=== PATIENT | female | born 1985 | race African-American/Black ===

== ENCOUNTER 2017-11-23 12:25 | Emergency (ER) | payer MEDICAID ==
[~2017-11-23] VITALS: Ht 165.1 cm; Wt 70.0 kg
[2017-11-23 13:25] LABS: CLARITY URINE CLEAR (CLEAR); COLOR URINE YELLOW (YELLOW); KETONES URINE NEGATIVE (NEGATIVE); LEUKOCYTE ESTERASE URINE NEGATIVE (NEGATIVE); NITRITE URINE NEGATIVE (NEGATIVE); OCCULT BLOOD URINE NEGATIVE (NEGATIVE); PROTEIN URINE 1+ (NEGATIVE); SPECIFIC GRAVITY URINE 1.021 (1.005-1.030); UROBILINOGEN URINE 0.2 E.U./dL (0.2-1.0)
[2017-11-23] MEDS ORDERED: BACITRACIN ZINC OINT UDPKT TOP ONE (13:30)
[2017-11-23 13:58] LABS: *AMPHETAMINES SCREEN URINE NEGATIVE (NEGATIVE); *BARBITURATES SCREEN URINE NEGATIVE (NEGATIVE); *BENZODIAZEPINES SCREEN URINE NEGATIVE (NEGATIVE); *COCAINE SCREEN URINE NEGATIVE (NEGATIVE); CANNABINOID URINE SCREEN NEGATIVE (NEGATIVE); METHADONE URINE SCREEN NEGATIVE (NEGATIVE); OPIATES URINE SCREEN NEGATIVE (NEGATIVE); PHENCYCLIDINE URINE SCREEN NEGATIVE (NEGATIVE)
[2017-11-23 14:10] LABS: CHLORIDE 103 mEq/L (98-107)
[2017-11-23 14:17] LABS: BASOPHILS % 1.3 % (0.0-2.0); EOSINOPHILS % 1.2 % (0.0-5.0); HEMATOCRIT. 42.4 % (36.0-48.0); HEMOGLOBIN. 14.2 g/dL (12.0-16.0); LYMPHOCYTES % 24.1 % (20.0-50.0); MEAN CORPUSCULAR HEMOGLOBIN 34.2 pg (28.0-32.0); MEAN CORPUSCULAR VOLUME 102.1 fL (81.0-99.0); MEAN PLATELET VOLUME 7.7 fl (7.4-10.4); MONOCYTES % 4.1 % (2.0-8.0); NEUTROPHILS % 69.3 % (40.0-76.0); PLATELET 314 x1000/uL (130-400); RED BLOOD CELL COUNT 4.16 mill/uL (4.2-5.4); RED CELL DISTRIBUTION WIDTH 13.6 % (11.6-14.6)
[2017-11-23 14:20] LABS: CARBON DIOXIDE 23 mEq/L (21-32)
[2017-11-23 14:28] LABS: ETHANOL BLOOD 446 mg/dL
[2017-11-23] MEDS ORDERED: LORAZEPAM 1MG TABLET PO ONE (14:45)
[2017-11-24] MEDS: LORAZEPAM 1MG TABLET PO ONE ×2 (02:37→02:38)
[2017-11-24] MEDS ORDERED: DIPHENHYDRAMINE 25MG CAPSULE PO ONE (05:30)
[2017-11-24 17:20] VITALS: BP 143/102
== END 2017-11-24 17:36 ==
LOC: ER 12:42
DX: F10.129 Alcohol abuse with intoxication, unspecified (principal); S50.812A Abrasion of left forearm, initial encounter; F41.9 Anxiety disorder, unspecified; R45.851 Suicidal ideations; F17.210 Nicotine dependence, cigarettes, uncomplicated; Y90.8 Blood alcohol level of 240 mg/100 ml or more; Z91.5 Personal history of self-harm; Y08.89XA Assault by other specified means, initial encounter; Y93.89 Activity, other specified; Y92.018 Other place in single-family (private) house as the place of occurrence of the external cause
CPT/HCPCS: 36415; 80048; 80305; 80307; 80329; 81001; 81025; 85025; 99285; G0482; Q0163

== ENCOUNTER 2018-11-07 14:01 | Inpatient (IN) | payer MEDICAID ==
[~2018-11-07] VITALS: Ht 165.1 cm; Wt 54.0 kg
[2018-11-07] MEDS ORDERED: SODIUM CHLORIDE 0.9% 1000ML BAG (SEPSIS BOLUS) IV ONE (21:00)
[2018-11-07] MEDS ORDERED: FOLIC ACID 1 MG, THIAMINE HCL 100 MG, MVI, ADULT NO.1 10 ML in DEXTROSE 5% WATER 1,000 ML IV ONE ×4 (21:30)
[2018-11-07 22:11] LABS: HEMATOCRIT. 33.4 % (36.0-48.0); HEMOGLOBIN. 11.2 g/dL (12.0-16.0); MEAN CORPUSCULAR HEMOGLOBIN 33.8 pg (28.0-32.0); MEAN CORPUSCULAR VOLUME 100.1 fL (81.0-99.0); MEAN PLATELET VOLUME 11.4 fl (7.4-10.4); PLATELET 131 x1000/uL (130-400); RED BLOOD CELL COUNT 3.33 mill/uL (4.2-5.4); RED CELL DISTRIBUTION WIDTH 12.9 % (11.6-14.6)
[2018-11-07 22:18] LABS: CHLORIDE 89 mEq/L (98-107); HCG SCREEN NEGATIVE
[2018-11-07 22:20] LABS: INR 1.6; PARTIAL THROMBOPLASTIN TIME 28.5 sec (23.4-31.0); PROTHROMBIN TIME 16.1 sec (9.1-11.1)
[2018-11-07 22:21] LABS: ETHANOL BLOOD < 10 mg/dL
[2018-11-07 22:24] LABS: CLARITY URINE TURBID (CLEAR); COLOR URINE ORANGE (YELLOW); KETONES URINE 3+ (NEGATIVE); LEUKOCYTE ESTERASE URINE TRACE (NEGATIVE); NITRITE URINE POSITIVE (NEGATIVE); OCCULT BLOOD URINE 1+ (NEGATIVE); PROTEIN URINE 3+ (NEGATIVE); SPECIFIC GRAVITY URINE 1.029 (1.005-1.030)
[2018-11-07 22:36] LABS: *BENZODIAZEPINES SCREEN URINE NEGATIVE (NEGATIVE); *COCAINE SCREEN URINE NEGATIVE (NEGATIVE); METHADONE URINE SCREEN NEGATIVE (NEGATIVE); OPIATES URINE SCREEN NEGATIVE (NEGATIVE)
[2018-11-07 22:37] LABS: *AMPHETAMINES SCREEN URINE NEGATIVE (NEGATIVE); *BARBITURATES SCREEN URINE NEGATIVE (NEGATIVE); PHENCYCLIDINE URINE SCREEN NEGATIVE (NEGATIVE)
[2018-11-07 22:47] LABS: CANNABINOID URINE SCREEN PRESUMTIVE POSITIVE (NEGATIVE)
[2018-11-07] MEDS ORDERED: KCL 20MEQ/100ML PREMIX 100 ML IV ONE (23:00)
[2018-11-07] MEDS ORDERED: LEVOFLOXACIN 750MG PREMIX 150 ML IV ONE (23:00)
[2018-11-07] MEDS ORDERED: LACTULOSE 20G/30ML UDC PO ONE (23:00)
[2018-11-07 23:27] LABS: NUCLEATED RED BLOOD CELLS 10 /100 WBC; PLATELET ESTIMATE NORMAL
[2018-11-07] MEDS ORDERED: ONDANSETRON HCL 4MG/2ML INJ IV ONE (23:30)
[2018-11-07] MEDS ORDERED: MAGNESIUM 1 G PREMIX 100 ML IV ONE (23:45)
[2018-11-08] MEDS ORDERED: ONDANSETRON HCL 4MG/2ML INJ IV ONE (01:00)
[2018-11-08] MEDS ORDERED: KCL 20MEQ/100ML PREMIX 100 ML IV ONE (07:00)
[2018-11-08 11:58] VITALS: BP 119/79
[2018-11-08 12:00] VITALS: BP 119/79
[2018-11-08] MEDS ORDERED: BISACODYL 10MG SUPP PR PRN (12:45)
[2018-11-08] MEDS: DEXT 5%/0.45% NACL 1000ML 1,000 ML IV SCH (13:14)
[2018-11-08] MEDS ORDERED: MAGNESIUM 2 G PREMIX 50 ML IV NR (14:00)
[2018-11-08] MEDS: CEFTRIAXONE 1 G PREMIX 50 ML IV SCH (14:00)
[2018-11-08] MEDS ORDERED: NA PHOS,M-B/NA PHOS,DI-BA ENEMA 118ML PR NR (15:15)
[2018-11-08] MEDS ORDERED: LACTULOSE 20G/30ML UDC PO NR (15:15)
[2018-11-08 16:00] VITALS: BP 115/79
[2018-11-08 16:26] LABS: HEPATITIS B SURFACE ANTIGEN NEGATIVE
[2018-11-08 16:55] LABS: HEPATITIS A AB IGM NEGATIVE (NEGATIVE)
[2018-11-08] MEDS ORDERED: LORAZEPAM 2MG/ML CPJ IV PRN (18:30)
[2018-11-08] MEDS: ONDANSETRON HCL 4MG/2ML INJ IV PRN (18:54)
[2018-11-08 20:00] VITALS: BP 135/90
[2018-11-08 20:40] LABS: VITAMIN B12 SERUM > 2000.0 pg/mL (211-911)
[2018-11-08 20:59] LABS: HEMATOCRIT. 27.9 % (36.0-48.0); HEMOGLOBIN. 9.8 g/dL (12.0-16.0); MEAN CORPUSCULAR HEMOGLOBIN 34.2 pg (28.0-32.0); MEAN PLATELET VOLUME 10.5 fl (7.4-10.4); PLATELET 141 x1000/uL (130-400); RED BLOOD CELL COUNT 2.87 mill/uL (4.2-5.4); RED CELL DISTRIBUTION WIDTH 12.8 % (11.6-14.6)
[2018-11-08 21:02] LABS: FERRITIN 2553 ng/mL (10-291)
[2018-11-08 21:26] LABS: PLATELET ESTIMATE NORMAL
[2018-11-08] MEDS: CHLORDIAZEPOXIDE 25MG CAPSULE PO SCH (21:39)
[2018-11-09] VITALS: BP 115/58
[2018-11-09 04:00] VITALS: BP 94/49
[2018-11-09] MEDS: CHLORDIAZEPOXIDE 25MG CAPSULE PO SCH ×3 (06:06→21:20)
[2018-11-09] MEDS: DEXT 5%/0.45% NACL 1000ML 1,000 ML IV SCH ×2 (06:57→13:00)
[2018-11-09 08:00] VITALS: BP 110/62
[2018-11-09 08:26] LABS: BASOPHILS % 0.2 % (0.0-2.0); EOSINOPHILS % 0.6 % (0.0-5.0); HEMATOCRIT. 25.2 % (36.0-48.0); MEAN CORPUSCULAR HEMOGLOBIN 34.2 pg (28.0-32.0); MEAN CORPUSCULAR VOLUME 96.1 fL (81.0-99.0); MEAN PLATELET VOLUME 10.8 fl (7.4-10.4); NEUTROPHILS % 80.2 % (40.0-76.0); PLATELET 159 x1000/uL (130-400); RED BLOOD CELL COUNT 2.63 mill/uL (4.2-5.4)
[2018-11-09] MEDS: PANTOPRAZOLE SODIUM 40 MG/VIAL IV SCH (09:08)
[2018-11-09 09:21] LABS: CHLORIDE 96 mEq/L (98-107)
[2018-11-09 12:00] VITALS: BP 126/71
[2018-11-09] MEDS ORDERED: BISACODYL 10MG SUPP PR NR (12:25)
[2018-11-09] MEDS ORDERED: BISACODYL 10MG SUPP PR PRN (12:33)
[2018-11-09] MEDS ORDERED: NA PHOS,M-B/NA PHOS,DI-BA ENEMA 118ML PR NR (12:34)
[2018-11-09] MEDS ORDERED: POTASSIUM CHLORIDE INJ 40 MEQ in DEXT 5% WATER 250 ML IV ONE (12:45)
[2018-11-09] MEDS ORDERED: POTASSIUM CHLORIDE 20MEQ TABLET SR PO NR ×3 (13:00→20:00)
[2018-11-09] MEDS ORDERED: POTASSIUM CHLORIDE INJ 40 MEQ in DEXT 5% WATER 250 ML IV NR (14:00)
[2018-11-09] MEDS: CEFTRIAXONE 1 G PREMIX 50 ML IV SCH (15:48)
[2018-11-09 16:00] VITALS: BP 122/74
[2018-11-09 20:00] VITALS: BP 103/60
[2018-11-10] VITALS: BP 108/62
[2018-11-10] MEDS: POTASSIUM CHLORIDE 20MEQ TABLET SR PO SCH ×3 (00:30→05:56)
[2018-11-10] MEDS: DEXT 5%/0.45% NACL 1000ML 1,000 ML IV SCH ×2 (02:48→05:00)
[2018-11-10 04:00] VITALS: BP 92/57
[2018-11-10] MEDS: CHLORDIAZEPOXIDE 25MG CAPSULE PO SCH ×2 (05:40→16:20)
[2018-11-10 07:43] LABS: HEMOGLOBIN. 8.8 g/dL (12.0-16.0); MEAN CORPUSCULAR HEMOGLOBIN 33.9 pg (28.0-32.0); MEAN CORPUSCULAR VOLUME 96.3 fL (81.0-99.0); MEAN PLATELET VOLUME 10.4 fl (7.4-10.4); PLATELET 182 x1000/uL (130-400); RED BLOOD CELL COUNT 2.59 mill/uL (4.2-5.4); RED CELL DISTRIBUTION WIDTH 13.4 % (11.6-14.6)
[2018-11-10 08:00] VITALS: BP 97/54
[2018-11-10 08:46] LABS: CHLORIDE 98 mEq/L (98-107)
[2018-11-10 09:01] LABS: AMYLASE 37 IU/L (25-115)
[2018-11-10] MEDS ORDERED: MAGNESIUM 2 G PREMIX 50 ML IV NR (09:30)
[2018-11-10] MEDS: PANTOPRAZOLE SODIUM 40 MG/VIAL IV SCH (10:32)
[2018-11-10] MEDS ORDERED: POTASSIUM CHLORIDE INJ 40 MEQ in DEXT 5% WATER 250 ML IV NR (11:00)
[2018-11-10 12:00] VITALS: BP 96/56
[2018-11-10] MEDS ORDERED: LACTULOSE 300 ML in WATER FOR IRRIGATION,STERILE 700 ML IR NR (13:00)
[2018-11-10 14:04] LABS: NUCLEATED RED BLOOD CELLS 2 /100 WBC
[2018-11-10 14:05] LABS: PLATELET ESTIMATE NORMAL
[2018-11-10] MEDS ORDERED: LACTULOSE 20G/30ML UDC PO PRN (15:30)
[2018-11-10] MEDS ORDERED: NA PHOS,M-B/NA PHOS,DI-BA ENEMA 118ML PR NR (15:30)
[2018-11-10 16:00] VITALS: BP 95/63
[2018-11-10] MEDS ORDERED: LACTULOSE 20G/30ML UDC ONE (16:07)
[2018-11-10] MEDS: FOLIC ACID 1MG TABLET PO SCH (16:19)
[2018-11-10] MEDS: THIAMINE HCL 100MG TABLET PO SCH (16:19)
[2018-11-10] MEDS: MULTIVITAMINS,THER W-MINERALS TABLET PO SCH (16:19)
[2018-11-10] MEDS: CEFTRIAXONE 1 G PREMIX 50 ML IV SCH (16:20)
[2018-11-10] MEDS: BISACODYL 5MG TABLET PO PRN (16:20)
[2018-11-10] MEDS: DOCUSATE SODIUM 250MG CAPSULE PO SCH (16:20)
[2018-11-10 20:00] VITALS: BP 106/58
[2018-11-10] MEDS: DEXT 5%/0.45% NACL KCL 40MEQ/L 1,000 ML IV SCH (20:48)
[2018-11-10] MEDS ORDERED: POTASSIUM CHLORIDE INJ 40 MEQ in DEXT 5% WATER 250 ML IV ONE (23:15)
[2018-11-11] VITALS (7 sets, daily range): BP systolic 86–100; BP diastolic 40–70
[2018-11-11] MEDS: CHLORDIAZEPOXIDE 25MG CAPSULE PO SCH ×4 (00:13→22:21)
[2018-11-11] MEDS: KCL 20MEQ/100ML PREMIX 100 ML IV SCH ×2 (00:13→02:17)
[2018-11-11] MEDS: DEXT 5%/0.45% NACL KCL 40MEQ/L 1,000 ML IV SCH ×3 (02:30→22:21)
[2018-11-11 06:07] LABS: CHLORIDE 99 mEq/L (98-107)
[2018-11-11 06:34] LABS: HEMATOCRIT. 26.7 % (36.0-48.0); HEMOGLOBIN. 9.5 g/dL (12.0-16.0); MEAN CORPUSCULAR VOLUME 98.1 fL (81.0-99.0); MEAN PLATELET VOLUME 9.8 fl (7.4-10.4); PLATELET 207 x1000/uL (130-400); RED BLOOD CELL COUNT 2.72 mill/uL (4.2-5.4); RED CELL DISTRIBUTION WIDTH 13.4 % (11.6-14.6)
[2018-11-11] MEDS: PANTOPRAZOLE SODIUM 40 MG/VIAL IV SCH (09:00)
[2018-11-11] MEDS: DOCUSATE SODIUM 250MG CAPSULE PO SCH (09:00)
[2018-11-11] MEDS: FOLIC ACID 1MG TABLET PO SCH (09:00)
[2018-11-11] MEDS: MULTIVITAMINS,THER W-MINERALS TABLET PO SCH (09:00)
[2018-11-11] MEDS: THIAMINE HCL 100MG TABLET PO SCH (09:00)
[2018-11-11 10:39] LABS: NUCLEATED RED BLOOD CELLS 1 /100 WBC; PLATELET ESTIMATE NORMAL
[2018-11-11] MEDS: CEFTRIAXONE 1 G PREMIX 50 ML IV SCH (18:14)
[2018-11-11] MEDS ORDERED: DIPHENHYDRAMINE 50MG/ML VIAL IV PRN (22:45)
[2018-11-12] VITALS (7 sets, daily range): BP systolic 103–117; BP diastolic 74–83
[2018-11-12 05:58] LABS: HEMATOCRIT. 28.3 % (36.0-48.0); MEAN CORPUSCULAR HEMOGLOBIN 34.8 pg (28.0-32.0); MEAN PLATELET VOLUME 9.7 fl (7.4-10.4); PLATELET 254 x1000/uL (130-400); RED BLOOD CELL COUNT 2.86 mill/uL (4.2-5.4); RED CELL DISTRIBUTION WIDTH 13.7 % (11.6-14.6)
[2018-11-12] MEDS: CHLORDIAZEPOXIDE 25MG CAPSULE PO SCH ×2 (06:05→18:03)
[2018-11-12] MEDS: DOCUSATE SODIUM 250MG CAPSULE PO SCH (08:00)
[2018-11-12] MEDS: MULTIVITAMINS,THER W-MINERALS TABLET PO SCH (08:00)
[2018-11-12] MEDS: THIAMINE HCL 100MG TABLET PO SCH (08:00)
[2018-11-12] MEDS: ONDANSETRON HCL 4MG/2ML INJ IV PRN (08:00)
[2018-11-12] MEDS: FOLIC ACID 1MG TABLET PO SCH (08:00)
[2018-11-12] MEDS: PANTOPRAZOLE SODIUM 40 MG/VIAL IV SCH (08:00)
[2018-11-12 08:21] LABS: PLATELET ESTIMATE NORMAL
[2018-11-12 11:27] LABS: CHLORIDE 99 mEq/L (98-107)
[2018-11-12] MEDS ORDERED: POTASSIUM CHLORIDE 20MEQ TABLET SR PO NR (11:45)
[2018-11-12] MEDS: DEXT 5%/0.45% NACL KCL 40MEQ/L 1,000 ML IV SCH ×2 (12:47→17:51)
[2018-11-12] MEDS: CEFTRIAXONE 1 G PREMIX 50 ML IV SCH (17:50)
[2018-11-13] VITALS (7 sets, daily range): BP systolic 118–128; BP diastolic 77–100
[2018-11-13] MEDS: DEXT 5%/0.45% NACL KCL 40MEQ/L 1,000 ML IV SCH ×2 (04:30→14:25)
[2018-11-13 08:00] LABS: HEMATOCRIT. 29.7 % (36.0-48.0); HEMOGLOBIN. 10.3 g/dL (12.0-16.0); MEAN CORPUSCULAR HEMOGLOBIN 34.3 pg (28.0-32.0); MEAN CORPUSCULAR VOLUME 99.2 fL (81.0-99.0); MEAN PLATELET VOLUME 9.1 fl (7.4-10.4); PLATELET 346 x1000/uL (130-400); RED BLOOD CELL COUNT 2.99 mill/uL (4.2-5.4); RED CELL DISTRIBUTION WIDTH 13.9 % (11.6-14.6)
[2018-11-13] MEDS: DOCUSATE SODIUM 250MG CAPSULE PO SCH (09:00)
[2018-11-13] MEDS: PANTOPRAZOLE SODIUM 40 MG/VIAL IV SCH (09:38)
[2018-11-13 10:03] LABS: CHLORIDE 97 mEq/L (98-107)
[2018-11-13] MEDS: FOLIC ACID 1MG TABLET PO SCH (10:17)
[2018-11-13] MEDS: THIAMINE HCL 100MG TABLET PO SCH (10:17)
[2018-11-13] MEDS: MULTIVITAMINS,THER W-MINERALS TABLET PO SCH (10:17)
[2018-11-13] MEDS: CHLORDIAZEPOXIDE 25MG CAPSULE PO SCH ×2 (10:18→20:57)
[2018-11-13 10:27] LABS: PLATELET ESTIMATE NORMAL
[2018-11-13] MEDS: CEFTRIAXONE 1 G PREMIX 50 ML IV SCH (13:41)
[2018-11-13] MEDS ORDERED: POTASSIUM CHLORIDE 20MEQ TABLET SR PO NR (15:30)
[2018-11-14] VITALS (7 sets, daily range): BP systolic 109–137; BP diastolic 76–102
[2018-11-14] MEDS: BISACODYL 5MG TABLET PO PRN (00:14)
[2018-11-14 07:43] LABS: HEMATOCRIT. 30.4 % (36.0-48.0); HEMOGLOBIN. 10.3 g/dL (12.0-16.0); MEAN CORPUSCULAR HEMOGLOBIN 33.9 pg (28.0-32.0); MEAN PLATELET VOLUME 8.7 fl (7.4-10.4); PLATELET 389 x1000/uL (130-400); RED BLOOD CELL COUNT 3.04 mill/uL (4.2-5.4); RED CELL DISTRIBUTION WIDTH 14.5 % (11.6-14.6)
[2018-11-14] MEDS: MULTIVITAMINS,THER W-MINERALS TABLET PO SCH (08:52)
[2018-11-14] MEDS: DOCUSATE SODIUM 250MG CAPSULE PO SCH (08:52)
[2018-11-14] MEDS: CHLORDIAZEPOXIDE 25MG CAPSULE PO SCH ×2 (08:52→21:23)
[2018-11-14] MEDS: FOLIC ACID 1MG TABLET PO SCH (08:53)
[2018-11-14] MEDS: THIAMINE HCL 100MG TABLET PO SCH (08:53)
[2018-11-14] MEDS: PANTOPRAZOLE SODIUM 40 MG/VIAL IV SCH (10:26)
[2018-11-14] MEDS: DEXT 5%/0.45% NACL KCL 40MEQ/L 1,000 ML IV SCH (10:26)
[2018-11-14 10:43] LABS: PLATELET ESTIMATE NORMAL
[2018-11-14 12:22] LABS: CHLORIDE 96 mEq/L (98-107)
[2018-11-14] MEDS: CEFTRIAXONE 1 G PREMIX 50 ML IV SCH (14:51)
[2018-11-15] MEDS: DEXT 5%/0.45% NACL KCL 40MEQ/L 1,000 ML IV SCH ×2 (00:11→16:30)
[2018-11-15 04:00] VITALS: BP 126/73
[2018-11-15 08:00] VITALS: BP 136/102
[2018-11-15] MEDS: CHLORDIAZEPOXIDE 25MG CAPSULE PO SCH (09:56)
[2018-11-15] MEDS: MULTIVITAMINS,THER W-MINERALS TABLET PO SCH (09:56)
[2018-11-15] MEDS: FOLIC ACID 1MG TABLET PO SCH (09:56)
[2018-11-15] MEDS: DOCUSATE SODIUM 250MG CAPSULE PO SCH (09:56)
[2018-11-15] MEDS: PANTOPRAZOLE SODIUM 40 MG/VIAL IV SCH (09:56)
[2018-11-15] MEDS: THIAMINE HCL 100MG TABLET PO SCH (09:56)
[2018-11-15] MEDS ORDERED: SODIUM CHLORIDE 0.9% 1,000 ML IV ONE (12:45)
[2018-11-15] MEDS: CEFTRIAXONE 1 G PREMIX 50 ML IV SCH (14:51)
[2018-11-15 20:00] VITALS: BP 124/83
[2018-11-16] VITALS: BP 152/75
[2018-11-16] MEDS: DEXT 5%/0.45% NACL KCL 40MEQ/L 1,000 ML IV SCH ×3 (03:47→23:57)
[2018-11-16 04:00] VITALS: BP 133/93
[2018-11-16 08:00] VITALS: BP 123/89
[2018-11-16] MEDS: PANTOPRAZOLE SODIUM 40 MG/VIAL IV SCH (08:53)
[2018-11-16] MEDS: DOCUSATE SODIUM 250MG CAPSULE PO SCH (08:53)
[2018-11-16] MEDS: FOLIC ACID 1MG TABLET PO SCH (08:53)
[2018-11-16] MEDS: THIAMINE HCL 100MG TABLET PO SCH (08:53)
[2018-11-16] MEDS: MULTIVITAMINS,THER W-MINERALS TABLET PO SCH (08:53)
[2018-11-16 10:57] LABS: BASOPHILS % 0.7 % (0.0-2.0); EOSINOPHILS % 1.1 % (0.0-5.0); HEMATOCRIT. 29.7 % (36.0-48.0); HEMOGLOBIN. 10.3 g/dL (12.0-16.0); LYMPHOCYTES % 11.1 % (20.0-50.0); MEAN CORPUSCULAR HEMOGLOBIN 34.9 pg (28.0-32.0); MEAN PLATELET VOLUME 8.4 fl (7.4-10.4); MONOCYTES % 9.3 % (2.0-8.0); NEUTROPHILS % 77.8 % (40.0-76.0); PLATELET 479 x1000/uL (130-400); RED BLOOD CELL COUNT 2.94 mill/uL (4.2-5.4); RED CELL DISTRIBUTION WIDTH 14.9 % (11.6-14.6)
[2018-11-16 11:12] LABS: CHLORIDE 106 mEq/L (98-107)
[2018-11-16 12:00] VITALS: BP 129/76
[2018-11-16] MEDS ORDERED: LEVE500T78 MT (12:29)
[2018-11-16] MEDS ORDERED: CLON0.5T23 MT (12:29)
[2018-11-16] MEDS ORDERED: TOPI25CA2 MT (12:29)
[2018-11-16 16:00] VITALS: BP 136/68
[2018-11-16 20:00] VITALS: BP 126/93
[2018-11-16] MEDS: METOPROLOL TARTRATE 25MG TABLET PO SCH (21:20)
[2018-11-16] MEDS: ONDANSETRON HCL 4MG/2ML INJ IV PRN (21:39)
[2018-11-17] VITALS: BP 139/105
[2018-11-17 00:07] VITALS: BP 139/105
[2018-11-17 04:00] VITALS: BP 128/94
[2018-11-17 06:24] LABS: BASOPHILS % 0.6 % (0.0-2.0); EOSINOPHILS % 0.5 % (0.0-5.0); HEMOGLOBIN. 9.5 g/dL (12.0-16.0); LYMPHOCYTES % 8.5 % (20.0-50.0); MEAN CORPUSCULAR HEMOGLOBIN 34.4 pg (28.0-32.0); MEAN PLATELET VOLUME 8.1 fl (7.4-10.4); MONOCYTES % 8.1 % (2.0-8.0); NEUTROPHILS % 82.3 % (40.0-76.0); PLATELET 454 x1000/uL (130-400); RED BLOOD CELL COUNT 2.77 mill/uL (4.2-5.4); RED CELL DISTRIBUTION WIDTH 16.1 % (11.6-14.6)
[2018-11-17 08:02] VITALS: BP 127/92
[2018-11-17 08:34] LABS: CHLORIDE 106 mEq/L (98-107)
[2018-11-17] MEDS: DOCUSATE SODIUM 250MG CAPSULE PO SCH (09:33)
[2018-11-17] MEDS: METOPROLOL TARTRATE 25MG TABLET PO SCH ×2 (09:33→21:38)
[2018-11-17] MEDS: THIAMINE HCL 100MG TABLET PO SCH (09:33)
[2018-11-17] MEDS: DEXT 5%/0.45% NACL KCL 40MEQ/L 1,000 ML IV SCH ×2 (09:33→18:06)
[2018-11-17] MEDS: FOLIC ACID 1MG TABLET PO SCH (09:33)
[2018-11-17] MEDS: PANTOPRAZOLE SODIUM 40 MG/VIAL IV SCH (09:33)
[2018-11-17] MEDS: MULTIVITAMINS,THER W-MINERALS TABLET PO SCH (09:33)
[2018-11-17] MEDS ORDERED: DIPHENHYDRAMINE 50MG/ML VIAL IV PRN (11:15)
[2018-11-17] MEDS: METHYLPREDNISOLONE SOD SUCC 40 MG/ML VIAL IV SCH ×2 (11:43→21:38)
[2018-11-17] MEDS: FAMOTIDINE 20MG/2ML VIAL IV SCH ×2 (11:44→21:38)
[2018-11-17 12:00] VITALS: BP 131/101
[2018-11-17 16:00] VITALS: BP 142/107
[2018-11-18] VITALS: BP 150/89
[2018-11-18 04:00] VITALS: BP 148/66
[2018-11-18] MEDS: METHYLPREDNISOLONE SOD SUCC 40 MG/ML VIAL IV SCH (06:40)
[2018-11-18] MEDS: DEXT 5%/0.45% NACL KCL 40MEQ/L 1,000 ML IV SCH ×2 (06:40→18:13)
[2018-11-18 08:00] VITALS: BP 148/102
[2018-11-18] MEDS: FOLIC ACID 1MG TABLET PO SCH (10:11)
[2018-11-18] MEDS: DOCUSATE SODIUM 250MG CAPSULE PO SCH (10:12)
[2018-11-18] MEDS: THIAMINE HCL 100MG TABLET PO SCH (10:12)
[2018-11-18] MEDS: FAMOTIDINE 20MG/2ML VIAL IV SCH ×2 (10:12→21:35)
[2018-11-18] MEDS: METOPROLOL TARTRATE 25MG TABLET PO SCH (10:12)
[2018-11-18] MEDS: PANTOPRAZOLE SODIUM 40 MG/VIAL IV SCH (10:12)
[2018-11-18] MEDS: MULTIVITAMINS,THER W-MINERALS TABLET PO SCH (10:12)
[2018-11-18 12:00] VITALS: BP 132/72
[2018-11-18 16:00] VITALS: BP 129/78
[2018-11-18 20:00] VITALS: BP 127/98
[2018-11-18] MEDS: METOPROLOL TARTRATE 50MG TABLET PO SCH (21:35)
[2018-11-19] VITALS: BP 117/88
[2018-11-19 04:00] VITALS: BP 110/74
[2018-11-19] MEDS: DEXT 5%/0.45% NACL KCL 40MEQ/L 1,000 ML IV SCH ×2 (05:25→12:39)
[2018-11-19 06:56] LABS: BASOPHILS % 1.1 % (0.0-2.0); EOSINOPHILS % 0.9 % (0.0-5.0); HEMATOCRIT. 28.8 % (36.0-48.0); HEMOGLOBIN. 9.6 g/dL (12.0-16.0); LYMPHOCYTES % 7.1 % (20.0-50.0); MEAN CORPUSCULAR HEMOGLOBIN 34.1 pg (28.0-32.0); MEAN CORPUSCULAR VOLUME 102.5 fL (81.0-99.0); MEAN PLATELET VOLUME 7.9 fl (7.4-10.4); MONOCYTES % 5.2 % (2.0-8.0); NEUTROPHILS % 85.7 % (40.0-76.0); PLATELET 428 x1000/uL (130-400); RED BLOOD CELL COUNT 2.81 mill/uL (4.2-5.4); RED CELL DISTRIBUTION WIDTH 17.2 % (11.6-14.6)
[2018-11-19 07:05] LABS: CHLORIDE 107 mEq/L (98-107)
[2018-11-19] MEDS: PANTOPRAZOLE SODIUM 40 MG/VIAL IV SCH (07:53)
[2018-11-19] MEDS: DOCUSATE SODIUM 250MG CAPSULE PO SCH (07:54)
[2018-11-19] MEDS: METOPROLOL TARTRATE 50MG TABLET PO SCH ×2 (07:54→21:00)
[2018-11-19] MEDS: FOLIC ACID 1MG TABLET PO SCH (07:54)
[2018-11-19] MEDS: MULTIVITAMINS,THER W-MINERALS TABLET PO SCH (07:54)
[2018-11-19] MEDS: THIAMINE HCL 100MG TABLET PO SCH (07:54)
[2018-11-19] MEDS: PREDNISONE 20MG TABLET PO SCH (07:54)
[2018-11-19 08:00] VITALS: BP 118/84
[2018-11-19 12:00] VITALS: BP 120/79
[2018-11-19] MEDS: FAMOTIDINE 20MG/2ML VIAL IV SCH ×2 (12:39→21:00)
[2018-11-19 16:00] VITALS: BP 136/99
[2018-11-19 20:00] VITALS: BP 128/93
[2018-11-20] VITALS: BP 114/81
[2018-11-20] MEDS: DEXT 5%/0.45% NACL KCL 40MEQ/L 1,000 ML IV SCH ×3 (02:23→18:38)
[2018-11-20 04:00] VITALS: BP 122/92
[2018-11-20 08:00] VITALS: BP 136/99
[2018-11-20] MEDS: MULTIVITAMINS,THER W-MINERALS TABLET PO SCH (08:46)
[2018-11-20] MEDS: FAMOTIDINE 20MG/2ML VIAL IV SCH ×2 (08:46→21:26)
[2018-11-20] MEDS: THIAMINE HCL 100MG TABLET PO SCH (08:46)
[2018-11-20] MEDS: DOCUSATE SODIUM 250MG CAPSULE PO SCH (08:46)
[2018-11-20] MEDS: FOLIC ACID 1MG TABLET PO SCH (08:47)
[2018-11-20] MEDS: METOPROLOL TARTRATE 50MG TABLET PO SCH ×2 (08:47→21:26)
[2018-11-20] MEDS: PREDNISONE 20MG TABLET PO SCH (09:00)
[2018-11-20 12:00] VITALS: BP 108/79
[2018-11-20 16:00] VITALS: BP 113/85
[2018-11-20 20:00] VITALS: BP 124/82
[2018-11-21] VITALS: BP 119/80
[2018-11-21] MEDS: DEXT 5%/0.45% NACL KCL 40MEQ/L 1,000 ML IV SCH ×3 (02:50→21:43)
[2018-11-21 04:00] VITALS: BP 126/90
[2018-11-21 08:00] VITALS: BP 108/65
[2018-11-21] MEDS: METOPROLOL TARTRATE 50MG TABLET PO SCH (09:00)
[2018-11-21] MEDS: PREDNISONE 20MG TABLET PO SCH (09:15)
[2018-11-21] MEDS: FAMOTIDINE 20MG/2ML VIAL IV SCH ×2 (09:16→21:43)
[2018-11-21] MEDS: MULTIVITAMINS,THER W-MINERALS TABLET PO SCH (09:16)
[2018-11-21] MEDS: DOCUSATE SODIUM 250MG CAPSULE PO SCH (09:17)
[2018-11-21] MEDS: FOLIC ACID 1MG TABLET PO SCH (09:17)
[2018-11-21] MEDS: THIAMINE HCL 100MG TABLET PO SCH (09:18)
[2018-11-21 09:20] LABS: BASOPHILS % 1.5 % (0.0-2.0); EOSINOPHILS % 2.1 % (0.0-5.0); HEMATOCRIT. 27.9 % (36.0-48.0); HEMOGLOBIN. 9.4 g/dL (12.0-16.0); LYMPHOCYTES % 11.9 % (20.0-50.0); MEAN CORPUSCULAR HEMOGLOBIN 34.5 pg (28.0-32.0); MEAN CORPUSCULAR VOLUME 102.5 fL (81.0-99.0); MEAN PLATELET VOLUME 8.1 fl (7.4-10.4); MONOCYTES % 5.7 % (2.0-8.0); NEUTROPHILS % 78.8 % (40.0-76.0); PLATELET 378 x1000/uL (130-400); RED BLOOD CELL COUNT 2.73 mill/uL (4.2-5.4); RED CELL DISTRIBUTION WIDTH 16.7 % (11.6-14.6)
[2018-11-21 09:32] LABS: CHLORIDE 106 mEq/L (98-107)
[2018-11-21 10:08] LABS: HIV SCREEN 4G Non Reactive (Non Reactive)
[2018-11-21 12:00] VITALS: BP 123/89
[2018-11-21 16:00] VITALS: BP 130/94
[2018-11-21 20:00] VITALS: BP 107/96
[2018-11-21] MEDS: METOPROLOL TARTRATE 25MG TABLET PO SCH ×2 (21:00→23:54)
[2018-11-22] VITALS: BP 130/98
[2018-11-22 04:00] VITALS: BP 129/87
[2018-11-22 08:00] VITALS: BP 118/85
[2018-11-22] MEDS: PREDNISONE 20MG TABLET PO SCH (09:49)
[2018-11-22] MEDS: DEXT 5%/0.45% NACL KCL 40MEQ/L 1,000 ML IV SCH ×2 (09:49→18:30)
[2018-11-22] MEDS: FAMOTIDINE 20MG/2ML VIAL IV SCH ×2 (09:49→21:03)
[2018-11-22] MEDS: FOLIC ACID 1MG TABLET PO SCH (09:50)
[2018-11-22] MEDS: THIAMINE HCL 100MG TABLET PO SCH (09:50)
[2018-11-22] MEDS: DOCUSATE SODIUM 250MG CAPSULE PO SCH (09:50)
[2018-11-22] MEDS: METOPROLOL TARTRATE 25MG TABLET PO SCH ×2 (09:50→21:03)
[2018-11-22] MEDS: MULTIVITAMINS,THER W-MINERALS TABLET PO SCH (09:50)
[2018-11-22 12:00] VITALS: BP 120/79
[2018-11-22 16:00] VITALS: BP 113/89
[2018-11-22 20:00] VITALS: BP 139/99
[2018-11-23] VITALS: BP 139/79
[2018-11-23] MEDS: DEXT 5%/0.45% NACL KCL 40MEQ/L 1,000 ML IV SCH (02:54)
[2018-11-23 04:00] VITALS: BP 126/88
[2018-11-23 05:46] LABS: CHLORIDE 107 mEq/L (98-107)
[2018-11-23 06:19] LABS: BASOPHILS % 1.2 % (0.0-2.0); EOSINOPHILS % 1.8 % (0.0-5.0); HEMATOCRIT. 23.7 % (36.0-48.0); HEMOGLOBIN. 7.9 g/dL (12.0-16.0); LYMPHOCYTES % 11.9 % (20.0-50.0); MEAN CORPUSCULAR HEMOGLOBIN 34.5 pg (28.0-32.0); MEAN CORPUSCULAR VOLUME 103.1 fL (81.0-99.0); NEUTROPHILS % 79.1 % (40.0-76.0); PLATELET 324 x1000/uL (130-400); RED BLOOD CELL COUNT 2.29 mill/uL (4.2-5.4); RED CELL DISTRIBUTION WIDTH 15.5 % (11.6-14.6)
[2018-11-23 08:00] VITALS: BP 124/60
[2018-11-23] MEDS: DOCUSATE SODIUM 250MG CAPSULE PO SCH (09:00)
[2018-11-23] MEDS: THIAMINE HCL 100MG TABLET PO SCH (09:22)
[2018-11-23] MEDS: PREDNISONE 20MG TABLET PO SCH (09:22)
[2018-11-23] MEDS: FAMOTIDINE 20MG/2ML VIAL IV SCH ×2 (09:22→22:18)
[2018-11-23] MEDS: METOPROLOL TARTRATE 25MG TABLET PO SCH ×2 (09:22→22:17)
[2018-11-23] MEDS: MULTIVITAMINS,THER W-MINERALS TABLET PO SCH (09:22)
[2018-11-23] MEDS: FOLIC ACID 1MG TABLET PO SCH (09:23)
[2018-11-23 09:27] LABS: CHLORIDE 108 mEq/L (98-107)
[2018-11-23] MEDS ORDERED: SODIUM POLYSTYRENE SULFONATE 15 G/60 ML BOT PO SCH (11:00)
[2018-11-23 12:00] VITALS: BP 108/75
[2018-11-23 16:00] VITALS: BP 125/80
[2018-11-23 20:00] VITALS: BP 125/93
[2018-11-24 00:50] VITALS: BP 134/93
[2018-11-24 04:00] VITALS: BP 118/83
[2018-11-24 08:02] VITALS: BP 124/79
[2018-11-24] MEDS: FOLIC ACID 1MG TABLET PO SCH (09:10)
[2018-11-24] MEDS: MULTIVITAMINS,THER W-MINERALS TABLET PO SCH (09:10)
[2018-11-24] MEDS: METOPROLOL TARTRATE 25MG TABLET PO SCH ×2 (09:10→21:28)
[2018-11-24] MEDS: DOCUSATE SODIUM 250MG CAPSULE PO SCH (09:11)
[2018-11-24] MEDS: THIAMINE HCL 100MG TABLET PO SCH (09:11)
[2018-11-24] MEDS: FAMOTIDINE 20MG/2ML VIAL IV SCH ×2 (09:50→21:00)
[2018-11-24 10:49] VITALS: BP 124/79
[2018-11-24] MEDS ORDERED: LACTULOSE 20G/30ML UDC PO SCH (11:15)
[2018-11-24 11:52] LABS: BASOPHILS % 0.2 % (0.0-2.0); EOSINOPHILS % 3.1 % (0.0-5.0); HEMATOCRIT. 25.5 % (36.0-48.0); HEMOGLOBIN. 8.4 g/dL (12.0-16.0); MEAN CORPUSCULAR HEMOGLOBIN 34.4 pg (28.0-32.0); MEAN CORPUSCULAR VOLUME 103.9 fL (81.0-99.0); MEAN PLATELET VOLUME 9.2 fl (7.4-10.4); MONOCYTES % 7.8 % (2.0-8.0); NEUTROPHILS % 68.9 % (40.0-76.0); PLATELET 338 x1000/uL (130-400); RED BLOOD CELL COUNT 2.45 mill/uL (4.2-5.4); RED CELL DISTRIBUTION WIDTH 15.7 % (11.6-14.6)
[2018-11-24 12:17] LABS: CHLORIDE 107 mEq/L (98-107)
[2018-11-24 16:00] VITALS: BP 115/71
== END 2018-11-24 21:58 | disposition home health service (06) | DRG 720 ==
LOC: ER 14:17 → 7WST 23:09 → EDBEDREQ 23:20 → EDBEDREQTM 23:20 → ENRESERV 11-08 10:09 → 7WST 11-08 10:52 → UNDOADMIN 11-08 10:52
PROVIDERS: ADMIT Internal Medicine; ATTEND Internal Medicine
PROC: 02HV33Z Insertion of Infusion Device into Superior Vena Cava, Percutaneous Approach (ICD-10-PCS; principal; 2018-11-13)
PROC: B518ZZA Fluoroscopy of Superior Vena Cava, Guidance (ICD-10-PCS; 2018-11-13)
PROC: B548ZZA Ultrasonography of Superior Vena Cava, Guidance (ICD-10-PCS; 2018-11-13)
DX: A41.9 Sepsis, unspecified organism (principal); G93.41 Metabolic encephalopathy; K85.20 Alcohol induced acute pancreatitis without necrosis or infection; E72.20 Disorder of urea cycle metabolism, unspecified; D68.4 Acquired coagulation factor deficiency; R13.10 Dysphagia, unspecified; R16.0 Hepatomegaly, not elsewhere classified; E83.42 Hypomagnesemia; E87.1 Hypo-osmolality and hyponatremia; E87.8 Other disorders of electrolyte and fluid balance, not elsewhere classified; K70.30 Alcoholic cirrhosis of liver without ascites; N39.0 Urinary tract infection, site not specified; R91.8 Other nonspecific abnormal finding of lung field; R22.9 Localized swelling, mass and lump, unspecified; G62.1 Alcoholic polyneuropathy; D53.9 Nutritional anemia, unspecified; E87.6 Hypokalemia; F12.90 Cannabis use, unspecified, uncomplicated; F10.239 Alcohol dependence with withdrawal, unspecified; K56.41 Fecal impaction; F41.9 Anxiety disorder, unspecified; I10 Essential (primary) hypertension; G62.9 Polyneuropathy, unspecified; G40.909 Epilepsy, unspecified, not intractable, without status epilepticus; F17.210 Nicotine dependence, cigarettes, uncomplicated; G31.9 Degenerative disease of nervous system, unspecified; Z71.41 Alcohol abuse counseling and surveillance of alcoholic
CPT/HCPCS: 36415; 36569; 70490; 71045; 71250; 72141; 72146; 72148; 74176; 76700; 76937; 77001; 80048; 80076; 80305; 82140; 82150; 82248; 82607; 82728; 82746; 83036; 83540; 83550; 83605; 83735; 84132; 84478; 84484; 84703; 86705; 86709; 86803; 87340; 87389; 92610; 93005; 93306; 96365; 97110; 97112; 97162; 97166; 97530; 97535; 99291; C1725; C1769; C9113; G0482; J0696; J1200; J1956; J2060; J2405; J2920; J3411; J3475; J3480; J3490; J7030; J7060; J7070; J7512

== ENCOUNTER 2019-02-11 01:45 | Emergency (ER) | payer MEDICAID ==
[~2019-02-11] VITALS: Ht 162.6 cm; Wt 63.0 kg
[~2019-02-11 01:45] MED LIST: CLON0.5T23 MT; LEVE500T78 MT; TOPI25CA2 MT
[2019-02-11 02:35] VITALS: BP 102/64
== END 2019-02-11 04:26 | disposition home or self-care (01) ==
LOC: ER 01:45
DX: F41.9 Anxiety disorder, unspecified (principal); F12.10 Cannabis abuse, uncomplicated; F17.200 Nicotine dependence, unspecified, uncomplicated; Z79.899 Other long term (current) drug therapy
CPT/HCPCS: 99284

== ENCOUNTER 2019-03-28 15:55 | Emergency (ER) | payer MEDICAID ==
[~2019-03-28] VITALS: Ht 165.1 cm; Wt 60.0 kg
[2019-03-28 16:08] VITALS: BP 126/93
[2019-03-28] MEDS ORDERED: DIPH25TA23 PO (16:17)
[2019-03-28] MEDS ORDERED: GABA-529 PO (16:17)
[2019-03-28] MEDS ORDERED: METO25TA6 PO (16:17)
== END 2019-03-28 22:04 | disposition left against medical advice (07) ==
LOC: ER 15:55
DX: Z53.21 Procedure and treatment not carried out due to patient leaving prior to being seen by health care provider (principal)

== ENCOUNTER 2019-04-07 08:48 | Emergency (ER) | payer MEDICAID ==
[~2019-04-07] VITALS: Ht 165.1 cm; Wt 58.0 kg
[~2019-04-07 08:48] MED LIST changes: +DIPH25TA23 PO; +GABA-529 PO; -LEVE500T78 MT; +LEVE500T98 MT; +METO25TA6 PO
[2019-04-07] MEDS ORDERED: SODIUM CHLORIDE 0.9% 1,000 ML IV ONE (09:28)
[2019-04-07] MEDS ORDERED: ONDANSETRON HCL 4MG/2ML INJ IV STA (09:28)
[2019-04-07] MEDS ORDERED: ALBUTEROL (0.083%) 2.5MG/3ML NEB HHN ONE (09:30)
[2019-04-07] MEDS ORDERED: FAMOTIDINE 20MG/2ML VIAL IV ONE (09:30)
[2019-04-07 10:03] LABS: BASOPHILS % 0.9 % (0.0-2.0); EOSINOPHILS % 0.5 % (0.0-5.0); HEMATOCRIT. 39.2 % (36.0-48.0); HEMOGLOBIN. 12.8 g/dL (12.0-16.0); LYMPHOCYTES % 17.6 % (20.0-50.0); MEAN CORPUSCULAR HEMOGLOBIN 29.3 pg (28.0-32.0); MEAN CORPUSCULAR VOLUME 90.1 fL (81.0-99.0); MEAN PLATELET VOLUME 7.8 fl (7.4-10.4); MONOCYTES % 6.1 % (2.0-8.0); NEUTROPHILS % 74.9 % (40.0-76.0); PLATELET 159 x1000/uL (130-400); RED BLOOD CELL COUNT 4.35 mill/uL (4.2-5.4); RED CELL DISTRIBUTION WIDTH 20.3 % (11.6-14.6)
[2019-04-07 10:09] LABS: CHLORIDE 99 mEq/L (98-107)
[2019-04-07 10:13] LABS: ETHANOL BLOOD 124 mg/dL
[2019-04-07] MEDS ORDERED: POTASSIUM CHLORIDE 20MEQ TABLET SR PO ONE (10:45)
[2019-04-07] MEDS ORDERED: METOCLOPRAMIDE HCL 10MG/2ML VIAL IV ONE (10:45)
[2019-04-07 11:53] LABS: CLARITY URINE CLEAR (CLEAR); COLOR URINE YELLOW (YELLOW); KETONES URINE 1+ (NEGATIVE); LEUKOCYTE ESTERASE URINE NEGATIVE (NEGATIVE); NITRITE URINE NEGATIVE (NEGATIVE); OCCULT BLOOD URINE NEGATIVE (NEGATIVE); PH URINE 7.5 (4.5-8.0); PROTEIN URINE NEGATIVE (NEGATIVE); SPECIFIC GRAVITY URINE 1.022 (1.005-1.030)
[2019-04-07 12:16] LABS: *AMPHETAMINES SCREEN URINE NEGATIVE (NEGATIVE); *BARBITURATES SCREEN URINE NEGATIVE (NEGATIVE); *BENZODIAZEPINES SCREEN URINE NEGATIVE (NEGATIVE); *COCAINE SCREEN URINE NEGATIVE (NEGATIVE)
[2019-04-07 12:17] VITALS: BP 123/76
[2019-04-07 12:17] LABS: METHADONE URINE SCREEN NEGATIVE (NEGATIVE); OPIATES URINE SCREEN NEGATIVE (NEGATIVE); PHENCYCLIDINE URINE SCREEN NEGATIVE (NEGATIVE)
[2019-04-07 12:22] LABS: CANNABINOID URINE SCREEN PRESUMTIVE POSITIVE (NEGATIVE)
== END 2019-04-07 12:30 | disposition home or self-care (01) ==
LOC: ER 08:48
DX: K29.20 Alcoholic gastritis without bleeding (principal); E87.6 Hypokalemia; K70.30 Alcoholic cirrhosis of liver without ascites; F10.20 Alcohol dependence, uncomplicated; Y90.6 Blood alcohol level of 120-199 mg/100 ml; F17.210 Nicotine dependence, cigarettes, uncomplicated
CPT/HCPCS: 36415; 71045; 80053; 80305; 80320; 81003; 81025; 83690; 85025; 93005; 94640; 96374; 96375; 99284; J2405; J2765; J3490; J7030; J7611; Z7610; G0480